=== PATIENT | male | born 1955 | race Caucasian/White ===

== ENCOUNTER 2023-10-28 16:41 | Emergency (ER) | payer MEDICARE, MEDICAID ==
[~2023-10-28] VITALS: Ht 167.6 cm; Wt 49.9 kg
[2023-10-28 16:54] VITALS: BP_SYST 132; PULSE 98; RESP 20; TEMP 97.6; O2SAT 98
[2023-10-28] MEDS: IPRATROPIUM/ALBUTEROL SULFATE 3 ML AMPUL.NEB (DUONEB) INH ONE (17:00)
[2023-10-28 17:30] LABS: BASOPHILS % (AUTO) 0.5 % (0.0-2.0); EOSINOPHILS # (AUTO) 0.1 K/uL (0.0-0.4); EOSINOPHILS % (AUTO) 1.2 % (0.0-4.0); HEMOGLOBIN 14.2 g/dL (14.0-18.0); LYMPHOCYTES # (AUTO) 1.6 K/uL (1.0-5.5); MEAN CORPUSCULAR HEMOGLOBIN 30 pg (27-31); MEAN CORPUSCULAR HGB CONC 33 % (32-36); MEAN CORPUSCULAR VOLUME 92 fL (79.0-98.0); MONOCYTES # (AUTO) 0.9 K/uL (0.0-1.0); MONOCYTES % (AUTO) 13.7 % (1.7-9.3); NEUTROPHILS # (AUTO) 4.2 K/uL (1.8-7.7); NEUTROPHILS % (AUTO) 61.6 % (40.0-70.0); PLATELET COUNT (AUTO) 312 K/uL (130-430); RED CELL DISTRIBUTION WIDTH 14.5 % (9.0-15.0); WHITE BLOOD COUNT (AUTO) 6.9 K/uL (4.8-10.8)
[2023-10-28 17:40] LABS: COVID19 ANTIGEN SOFIA FIA NEGATIVE (NEGATIVE)
[2023-10-28 17:41] LABS: INFLUENZA TYPE A Negative (NEGATIVE); INFLUENZA TYPE B NEGATIVE (NEGATIVE)
[2023-10-28 17:54] LABS: INR 1.2 (0.80-1.20); PROTHROMBIN TIME 12.3 SECS (9.5-12.5)
[2023-10-28 17:59] LABS: ALANINE AMINOTRANSFERASE 31 U/L (12-78); ALBUMIN 3.1 g/dL (3.4-4.8); ANION GAP 8 (5-15); ASPARTATE AMINOTRANSFERASE 20 U/L (10-37); CALCIUM 8.9 mg/dL (8.4-11.0); CARBON DIOXIDE 28 mmol/L (23-29); CHLORIDE 110 mmol/L (98-107); CREATININE 0.45 mg/dL (0.55-1.30); GFR AFRICAN AMERICAN 241 mL/min (>90); GFR NON AFRICAN-AMERICAN 199 mL/min (>90); GLUCOSE 95 mg/dL (74-106); POTASSIUM 3.7 mmol/L (3.5-5.1); SODIUM SERUM 146 mmol/L (136-145); TOTAL BILIRUBIN 0.6 mg/dL (0.0-1.0); TOTAL PROTEIN, SERUM 7.3 g/dL (6.4-8.3); UREA NITROGEN, BLOOD 18 mg/dL (8-21)
[2023-10-28 18:10] LABS: BILIRUBIN,DIRECT 0.2 mg/dL (0.0-0.3); CREATINE KINASE, TOTAL 66 U/L (39-308)
[2023-10-28] MEDS ORDERED: TIOT18CA8 INH (18:46)
[2023-10-28] MEDS ORDERED: ZOLP10TA2 (18:46)
[2023-10-28] MEDS ORDERED: ATOR40TA68 PO (18:46)
[2023-10-28] MEDS ORDERED: TIOT18CA3 INH (18:46)
[2023-10-28] MEDS ORDERED: ALBU2.5V7 HHN (18:46)
[2023-10-28] MEDS ORDERED: CLON1TAB12 (18:46)
[2023-10-28] MEDS ORDERED: FINA5TAB11 PO (18:46)
[2023-10-28] MEDS ORDERED: QUET25TA36 PO (18:46)
[2023-10-28] MEDS ORDERED: HYDR-3925 PO (18:46)
[2023-10-28] MEDS ORDERED: OMEP20CA15 PO (18:46)
[2023-10-28 18:52] VITALS: TEMP 97.6
[2023-10-28] MEDS ORDERED: LEVO-62 PO (19:01)
[2023-10-28] MEDS: HYDROcodone/ACETAMIN 7.5-325 MG TAB PO ONE (19:57)
[2023-10-28] MEDS: levoFLOXacin 500 MG TABLET PO ONE (21:01)
[2023-10-28 21:35] VITALS: BP_SYST 112; PULSE 74; RESP 20; O2SAT 94
== END 2023-10-28 21:34 | disposition home or self-care (01) ==
LOC: SED 16:41
DX: J18.9 Pneumonia, unspecified organism (principal); Z79.899 Other long term (current) drug therapy; Z20.822 Contact with and (suspected) exposure to COVID-19
CPT/HCPCS: 99285; 96365; 71045; 87426; 80076; 80048; 82550; 83880; 85025; 85610; 85730; 84484; 36415; 93005; 94640; 83605; 87804 ×2; 82397; J1956; 94760

== ENCOUNTER 2023-11-16 09:06 | Inpatient (IN) | payer MEDICARE, MEDICAID ==
[~2023-11-16] VITALS: Ht 172.7 cm; Wt 61.2 kg
[2023-11-16 09:06] VITALS: BP_SYST 84; PULSE 82; RESP 20; TEMP 99.3; O2SAT 96
[~2023-11-16 09:06] MED LIST: ALBU2.5V7 HHN; ATOR40TA68 GT; CLON1TAB12 GT; FINA5TAB11 GT; HYDR-3925 GT; LEVO-62 PO; OMEP20CA15 GT; QUET25TA36 GT; TIOT18CA3 INH; TIOT18CA8 INH; ZOLP10TA2 GT
[2023-11-16] MEDS: IPRATROPIUM/ALBUTEROL SULFATE 3 ML AMPUL.NEB (DUONEB) INH ONE ×2 (09:27→09:55)
[2023-11-16 10:00] LABS: ABG O2 SAT% ESTIMATE 94.6 % (94.0-100.0); BLOOD GAS BASE EXCESS -1.1 mmol/L (-3.0-3.0); BLOOD GAS HCO3 23.2 mmol/L (21.0-27.0); BLOOD GAS PCO2 37.6 mmHg (32.0-45.0); BLOOD GAS PH 7.408 (7.350-7.450); BLOOD GAS PO2 71.6 mmHg (75.0-100.0)
[2023-11-16 10:02] LABS: ALLEN'S TEST POSITIVE (P)
[2023-11-16 10:06] LABS: BASOPHILS % (AUTO) 0.1 % (0.0-2.0); EOSINOPHILS # (AUTO) 0.1 K/uL (0.0-0.4); EOSINOPHILS % (AUTO) 0.6 % (0.0-4.0); HEMATOCRIT 37.5 % (36-54); HEMOGLOBIN 12.3 g/dL (14.0-18.0); LYMPHOCYTES # (AUTO) 1.1 K/uL (1.0-5.5); LYMPHOCYTES % (AUTO) 8.2 % (20.5-51.5); MEAN CORPUSCULAR HEMOGLOBIN 30 pg (27-31); MEAN CORPUSCULAR HGB CONC 33 % (32-36); MEAN CORPUSCULAR VOLUME 91 fL (79.0-98.0); MONOCYTES # (AUTO) 1.5 K/uL (0.0-1.0); NEUTROPHILS # (AUTO) 10.6 K/uL (1.8-7.7); NEUTROPHILS % (AUTO) 80.1 % (40.0-70.0); PLATELET COUNT (AUTO) 225 K/uL (130-430); RED BLOOD CELL COUNT(AUTO) 4.14 MIL/uL (4.2-6.2); RED CELL DISTRIBUTION WIDTH 14.8 % (9.0-15.0); WHITE BLOOD COUNT (AUTO) 13.2 K/uL (4.8-10.8)
[2023-11-16] MEDS: PIPERACILLIN/TAZO 3.375 GM in D5W 50 ML IV ONE (10:09)
[2023-11-16] MEDS ORDERED: PIPERACILLIN/TAZOBACTAM 3.375 GM/VIAL (ZOSYN) IV ONE (10:10)
[2023-11-16 10:11] LABS: ANION GAP 3 (5-15); CALCIUM 8.4 mg/dL (8.4-11.0); CARBON DIOXIDE 30 mmol/L (23-29); CHLORIDE 106 mmol/L (98-107); GFR AFRICAN AMERICAN 144 mL/min (>90); GLUCOSE 86 mg/dL (74-106); POTASSIUM 4.3 mmol/L (3.5-5.1); SODIUM SERUM 139 mmol/L (136-145); UREA NITROGEN, BLOOD 22 mg/dL (8-21)
[2023-11-16 10:12] LABS: GFR NON AFRICAN-AMERICAN 119 mL/min (>90)
[2023-11-16] MEDS: NACL 0.9% 1,000 ML IV ONE ×2 (10:28→16:05)
[2023-11-16] MEDS ORDERED: SENN8.6T19 GT (11:36)
[2023-11-16 12:36] LABS: INFLUENZA TYPE A Negative (NEGATIVE); INFLUENZA TYPE B NEGATIVE (NEGATIVE)
[2023-11-16] MEDS: NACL 0.9% 1,000 ML IV SCH (14:24)
[2023-11-16 17:18] VITALS: BP_SYST 93; PULSE 81; RESP 16; TEMP 97.6; O2SAT 94
[2023-11-16 17:31] VITALS: BP_SYST 93; PULSE 81; RESP 16; TEMP 97.6; O2SAT 94
[2023-11-16 20:22] VITALS: BP_SYST 146; PULSE 80; RESP 16; TEMP 98.6; O2SAT 93
[2023-11-16] MEDS ORDERED: ZOLPIDEM TARTRATE 5 MG TABLET PO PRN (20:45)
[2023-11-16] MEDS ORDERED: HYDROcodone/ACETAMIN 10-325 MG TAB PO PRN (20:45)
[2023-11-16] MEDS ORDERED: NALOXONE HCL 0.4 MG/ML AMP (NARCAN) IVP PRN (20:45)
[2023-11-16] MEDS ORDERED: ALBUTEROL MDI INHALATION 8 GM INH INH SCH (21:00)
[2023-11-16 22:04] VITALS: BP_SYST 146; PULSE 80; O2SAT 93
[2023-11-16] MEDS: QUEtiapine FUMARATE 25 MG TABLET PO SCH (22:14)
[2023-11-16] MEDS: clonazePAM 0.5 MG TABLET PO SCH (22:15)
[2023-11-17] VITALS (10 sets, daily range): BP systolic 82–99; PULSE 64–71; RESP 15–16; TEMP 96.5–98.4; O2SAT 93–97
[2023-11-17 06:40] LABS: BASOPHILS % (AUTO) 0.1 % (0.0-2.0); EOSINOPHILS # (AUTO) 0.2 K/uL (0.0-0.4); EOSINOPHILS % (AUTO) 1.9 % (0.0-4.0); HEMOGLOBIN 11.4 g/dL (14.0-18.0); LYMPHOCYTES # (AUTO) 1.4 K/uL (1.0-5.5); LYMPHOCYTES % (AUTO) 13.1 % (20.5-51.5); MEAN CORPUSCULAR HEMOGLOBIN 30 pg (27-31); MEAN CORPUSCULAR HGB CONC 34 % (32-36); MEAN CORPUSCULAR VOLUME 90 fL (79.0-98.0); MONOCYTES # (AUTO) 1.3 K/uL (0.0-1.0); MONOCYTES % (AUTO) 12.9 % (1.7-9.3); NEUTROPHILS # (AUTO) 7.5 K/uL (1.8-7.7); PLATELET COUNT (AUTO) 206 K/uL (130-430); RED BLOOD CELL COUNT(AUTO) 3.77 MIL/uL (4.2-6.2); RED CELL DISTRIBUTION WIDTH 14.2 % (9.0-15.0); WHITE BLOOD COUNT (AUTO) 10.4 K/uL (4.8-10.8)
[2023-11-17 06:55] LABS: ALBUMIN 2.2 g/dL (3.4-4.8); CALCIUM 8.5 mg/dL (8.4-11.0); CREATININE 0.49 mg/dL (0.55-1.30); TOTAL BILIRUBIN 0.4 mg/dL (0.0-1.0); TOTAL PROTEIN, SERUM 5.5 g/dL (6.4-8.3)
[2023-11-17] MEDS: ALBUTEROL SULFATE 0.083% 2.5 MG/3 ML VIAL.NEB INH SCH (11:28)
[2023-11-17 14:43] LABS: BILIRUBIN,URINE NEGATIVE (NEGATIVE); BLOOD, URINE NEGATIVE (NEGATIVE); CLARITY/URINE CLEAR (CLEAR); COLOR,URINE YELLOW (YELLOW); GLUCOSE,URINE NEGATIVE (NEGATIVE); KETONES,URINE NEGATIVE (NEGATIVE); LEUKOCYTE ESTERASE ,URINE NEGATIVE (NEGATIVE); NITRITE, URINE NEGATIVE (NEGATIVE); PROTEIN URINE NEGATIVE (NEGATIVE); UROBILINOGEN,URINE 0.2 (0.2-1.0)
[2023-11-17] MEDS ORDERED: PRO40 GT (15:31)
[2023-11-17] MEDS ORDERED: NALOXONE HCL 0.4 MG/ML AMP (NARCAN) IVP PRN (15:45)
[2023-11-17] MEDS ORDERED: QUEtiapine FUMARATE 25 MG TABLET PO PRN (15:45)
[2023-11-17] MEDS ORDERED: QUEtiapine FUMARATE 25 MG TABLET GT PRN (15:53)
[2023-11-17] MEDS: HYDROcodone/ACETAMIN 10-325 MG TAB GT SCH (17:56)
[2023-11-17] MEDS: ZOLPIDEM TARTRATE 5 MG TABLET GT SCH (22:04)
[2023-11-18] VITALS (10 sets, daily range): BP systolic 95–138; PULSE 63–83; RESP 16–18; TEMP 97.1–98.7; O2SAT 93–97
[2023-11-18 06:06] LABS: BASOPHILS % (AUTO) 0.2 % (0.0-2.0); EOSINOPHILS # (AUTO) 0.3 K/uL (0.0-0.4); EOSINOPHILS % (AUTO) 4.4 % (0.0-4.0); HEMOGLOBIN 11.5 g/dL (14.0-18.0); LYMPHOCYTES # (AUTO) 1.3 K/uL (1.0-5.5); LYMPHOCYTES % (AUTO) 18.5 % (20.5-51.5); MEAN CORPUSCULAR HEMOGLOBIN 30 pg (27-31); MEAN CORPUSCULAR HGB CONC 34 % (32-36); MEAN CORPUSCULAR VOLUME 90 fL (79.0-98.0); MONOCYTES # (AUTO) 0.8 K/uL (0.0-1.0); MONOCYTES % (AUTO) 11.2 % (1.7-9.3); NEUTROPHILS # (AUTO) 4.6 K/uL (1.8-7.7); NEUTROPHILS % (AUTO) 65.7 % (40.0-70.0); PLATELET COUNT (AUTO) 207 K/uL (130-430); RED BLOOD CELL COUNT(AUTO) 3.79 MIL/uL (4.2-6.2); RED CELL DISTRIBUTION WIDTH 14.4 % (9.0-15.0)
[2023-11-18 06:33] LABS: CALCIUM 8.2 mg/dL (8.4-11.0); CREATININE 0.47 mg/dL (0.55-1.30)
[2023-11-18] MEDS: PIPERACILLIN/TAZO 4.5 GM in NS 100 ML IV SCH (06:37)
[2023-11-18] MEDS: LANSOPRAZOLE 30 MG CAPSULE.DR GT SCH (07:00)
[2023-11-18] MEDS ORDERED: PANTOPRAZOLE SODIUM 40 MG TAB PO SCH (09:00)
[2023-11-18] MEDS: ATORVASTATIN 20 MG TABLET PO SCH (09:53)
[2023-11-18] MEDS: FINASTERIDE 5 MG TABLET (PROSCAR) PO SCH (09:53)
[2023-11-19] VITALS (11 sets, daily range): BP systolic 92–108; PULSE 62–89; RESP 15–18; TEMP 97–98.2; O2SAT 92–99
[2023-11-19 06:12] LABS: BASOPHILS % (AUTO) 0.2 % (0.0-2.0); EOSINOPHILS # (AUTO) 0.4 K/uL (0.0-0.4); EOSINOPHILS % (AUTO) 7.4 % (0.0-4.0); HEMATOCRIT 34.9 % (36-54); HEMOGLOBIN 11.6 g/dL (14.0-18.0); LYMPHOCYTES # (AUTO) 1.3 K/uL (1.0-5.5); LYMPHOCYTES % (AUTO) 25.9 % (20.5-51.5); MEAN CORPUSCULAR HEMOGLOBIN 30 pg (27-31); MEAN CORPUSCULAR HGB CONC 33 % (32-36); MEAN CORPUSCULAR VOLUME 90 fL (79.0-98.0); MONOCYTES # (AUTO) 0.6 K/uL (0.0-1.0); MONOCYTES % (AUTO) 13.2 % (1.7-9.3); NEUTROPHILS # (AUTO) 2.6 K/uL (1.8-7.7); NEUTROPHILS % (AUTO) 53.3 % (40.0-70.0); PLATELET COUNT (AUTO) 233 K/uL (130-430); RED BLOOD CELL COUNT(AUTO) 3.88 MIL/uL (4.2-6.2); RED CELL DISTRIBUTION WIDTH 14.2 % (9.0-15.0); WHITE BLOOD COUNT (AUTO) 4.9 K/uL (4.8-10.8)
[2023-11-19 06:53] LABS: CALCIUM 8.3 mg/dL (8.4-11.0); CREATININE 0.56 mg/dL (0.55-1.30); POTASSIUM 4.1 mmol/L (3.5-5.1)
[2023-11-19] MEDS: IPRATROPIUM/ALBUTEROL SULFATE 3 ML AMPUL.NEB (DUONEB) INH PRN (09:17)
[2023-11-19] MEDS: ACETYLCYSTEINE 10% 4 ML VIAL (RT) INH ONE (11:50)
[2023-11-20] VITALS (11 sets, daily range): BP systolic 93–134; PULSE 61–85; RESP 16–20; TEMP 97.4–99.2; O2SAT 91–97
[2023-11-20 05:20] LABS: BASOPHILS % (AUTO) 0.5 % (0.0-2.0); EOSINOPHILS # (AUTO) 0.4 K/uL (0.0-0.4); HEMATOCRIT 36.4 % (36-54); MEAN CORPUSCULAR HEMOGLOBIN 30 pg (27-31); MEAN CORPUSCULAR HGB CONC 33 % (32-36); MEAN CORPUSCULAR VOLUME 91 fL (79.0-98.0); MONOCYTES # (AUTO) 0.6 K/uL (0.0-1.0); MONOCYTES % (AUTO) 12.3 % (1.7-9.3); NEUTROPHILS % (AUTO) 59.2 % (40.0-70.0); PLATELET COUNT (AUTO) 244 K/uL (130-430); RED BLOOD CELL COUNT(AUTO) 4.02 MIL/uL (4.2-6.2); RED CELL DISTRIBUTION WIDTH 14.4 % (9.0-15.0); WHITE BLOOD COUNT (AUTO) 5.1 K/uL (4.8-10.8)
[2023-11-20 05:32] LABS: CALCIUM 8.7 mg/dL (8.4-11.0); CREATININE 0.52 mg/dL (0.55-1.30); POTASSIUM 4.1 mmol/L (3.5-5.1)
[2023-11-20] MEDS ORDERED: AUG875 GT (13:11)
[2023-11-21] VITALS (10 sets, daily range): BP systolic 95–113; PULSE 61–81; RESP 16–18; TEMP 96.1–97.4; O2SAT 92–96
[2023-11-21] MEDS ORDERED: AUG875 PO (08:59)
== END 2023-11-21 16:10 | disposition home health service (06) | DRG 871 ==
LOC: SED 09:06 → STU 14:04 → SMU 11-19 12:08
PROVIDERS: ADMIT Internal Medicine; ATTEND Internal Medicine
PROC: 4A10X4Z Monitoring of Central Nervous Electrical Activity, External Approach (ICD-10-PCS; principal; 2023-11-20)
DX: A41.9 Sepsis, unspecified organism (principal); G93.41 Metabolic encephalopathy; J18.9 Pneumonia, unspecified organism; J96.90 Respiratory failure, unspecified, unspecified whether with hypoxia or hypercapnia; K21.9 Gastro-esophageal reflux disease without esophagitis; Z20.822 Contact with and (suspected) exposure to COVID-19; E78.5 Hyperlipidemia, unspecified; R13.10 Dysphagia, unspecified; Z86.73 Personal history of transient ischemic attack (TIA), and cerebral infarction without residual deficits; Z88.8 Allergy status to other drugs, medicaments and biological substances
CPT/HCPCS: 36415; 36600; 70450-TC; 71045; 80048; 80053; 81001; 81003; 82803; 83605; 83880; 84484; 85025; 87040; 87086; 93005; 93971; 94640; 94760; 95816; 97110-GP; 97112-GP; 97530-GP; 99291; G0378; J1956; J2543; J7608

== ENCOUNTER 2024-01-13 20:59 | Emergency (ER) | payer MEDICARE, MEDICAID ==
[~2024-01-13] VITALS: Ht 175.3 cm; Wt 59.0 kg
[~2024-01-13 20:59] MED LIST changes: +AUG875 PO; -LEVO-62 PO; -OMEP20CA15 GT; +PRO40 GT; +SENN8.6T19 GT; -TIOT18CA8 INH
[2024-01-13 21:11] VITALS: BP_SYST 119; PULSE 67; RESP 18; TEMP 98.5; O2SAT 97
[2024-01-13 22:12] LABS: BASOPHILS # (AUTO) 0.1 K/uL (0.0-0.2); BASOPHILS % (AUTO) 0.7 % (0.0-2.0); EOSINOPHILS # (AUTO) 0.1 K/uL (0.0-0.4); EOSINOPHILS % (AUTO) 1.2 % (0.0-4.0); HEMATOCRIT 38.9 % (36-54); HEMOGLOBIN 12.9 g/dL (14.0-18.0); LYMPHOCYTES # (AUTO) 1.8 K/uL (1.0-5.5); MEAN CORPUSCULAR HEMOGLOBIN 30 pg (27-31); MEAN CORPUSCULAR HGB CONC 33 % (32-36); MEAN CORPUSCULAR VOLUME 90 fL (79.0-98.0); MONOCYTES # (AUTO) 0.8 K/uL (0.0-1.0); NEUTROPHILS # (AUTO) 4.9 K/uL (1.8-7.7); NEUTROPHILS % (AUTO) 64.1 % (40.0-70.0); PLATELET COUNT (AUTO) 184 K/uL (130-430); RED BLOOD CELL COUNT(AUTO) 4.31 MIL/uL (4.2-6.2); RED CELL DISTRIBUTION WIDTH 14.2 % (9.0-15.0); WHITE BLOOD COUNT (AUTO) 7.6 K/uL (4.8-10.8)
[2024-01-13 22:19] LABS: INR 1.2 (0.80-1.20); PROTHROMBIN TIME 12.5 SECS (9.5-12.5)
[2024-01-13 22:38] LABS: COVID19 ANTIGEN SOFIA FIA NEGATIVE (NEGATIVE)
[2024-01-13 22:59] LABS: ALANINE AMINOTRANSFERASE 26 U/L (12-78); ALBUMIN 2.8 g/dL (3.4-4.8); ANION GAP 7 (5-15); ASPARTATE AMINOTRANSFERASE 17 U/L (10-37); BILIRUBIN,DIRECT 0.1 mg/dL (0.0-0.3); CARBON DIOXIDE 26 mmol/L (23-29); CHLORIDE 106 mmol/L (98-107); CREATININE 0.49 mg/dL (0.55-1.30); GFR AFRICAN AMERICAN 218 mL/min (>90); GLUCOSE 88 mg/dL (74-106); POTASSIUM 4.1 mmol/L (3.5-5.1); SODIUM SERUM 139 mmol/L (136-145); TOTAL BILIRUBIN 0.5 mg/dL (0.0-1.0); TOTAL PROTEIN, SERUM 6.8 g/dL (6.4-8.3); UREA NITROGEN, BLOOD 24 mg/dL (8-21)
[2024-01-13 23:03] LABS: GFR NON AFRICAN-AMERICAN 180 mL/min (>90)
[2024-01-13 23:24] LABS: INFLUENZA TYPE A Negative (NEGATIVE); INFLUENZA TYPE B NEGATIVE (NEGATIVE)
[2024-01-13] MEDS ORDERED: ZIT250 GT (23:35)
[2024-01-13] MEDS ORDERED: IBUP-1969 GT (23:35)
[2024-01-13] MEDS ORDERED: PRED20TA GT (23:35)
[2024-01-13 23:55] VITALS: BP_SYST 101; PULSE 60; RESP 16; TEMP 98; O2SAT 96
== END 2024-01-13 23:55 | disposition home or self-care (01) ==
LOC: SED 20:59
DX: J18.9 Pneumonia, unspecified organism (principal); R50.9 Fever, unspecified; R06.02 Shortness of breath; Z20.822 Contact with and (suspected) exposure to COVID-19; I10 Essential (primary) hypertension; Z98.890 Other specified postprocedural states; Z88.5 Allergy status to narcotic agent; Z79.899 Other long term (current) drug therapy; Z79.2 Long term (current) use of antibiotics
CPT/HCPCS: 36415; 71045; 80048; 80076; 83605; 83880; 84484; 85025; 85610; 85730; 93005; 99285

== ENCOUNTER 2024-03-21 18:59 | Inpatient (IN) | payer MEDICARE, MEDICAID ==
[~2024-03-21] VITALS: Ht 167.6 cm; Wt 57.2 kg
[~2024-03-21 18:59] MED LIST changes: +IBUP-1969 GT; +PRED20TA GT; +ZIT250 GT
[2024-03-21 19:00] VITALS: BP_SYST 106; PULSE 69; RESP 24; TEMP 98; O2SAT 97
[2024-03-21] MEDS ORDERED: PIPERACILLIN/TAZOBACTAM 3.375 GM/VIAL (ZOSYN) IV ONE (19:49)
[2024-03-21 19:59] LABS: BASOPHILS % (AUTO) 0.2 % (0.0-2.0); EOSINOPHILS # (AUTO) 0.1 K/uL (0.0-0.4); EOSINOPHILS % (AUTO) 0.7 % (0.0-4.0); HEMATOCRIT 45.2 % (36-54); HEMOGLOBIN 15.1 g/dL (14.0-18.0); LYMPHOCYTES # (AUTO) 1.6 K/uL (1.0-5.5); LYMPHOCYTES % (AUTO) 15.9 % (20.5-51.5); MEAN CORPUSCULAR HEMOGLOBIN 30 pg (27-31); MEAN CORPUSCULAR HGB CONC 34 % (32-36); MEAN CORPUSCULAR VOLUME 90 fL (79.0-98.0); MONOCYTES % (AUTO) 9.5 % (1.7-9.3); NEUTROPHILS # (AUTO) 7.6 K/uL (1.8-7.7); NEUTROPHILS % (AUTO) 73.7 % (40.0-70.0); PLATELET COUNT (AUTO) 220 K/uL (130-430); RED BLOOD CELL COUNT(AUTO) 5.05 MIL/uL (4.2-6.2); RED CELL DISTRIBUTION WIDTH 14.3 % (9.0-15.0); WHITE BLOOD COUNT (AUTO) 10.3 K/uL (4.8-10.8)
[2024-03-21] MEDS: PIPERACILLIN/TAZO 3.375 GM in D5W 50 ML IV ONE (20:07)
[2024-03-21 20:08] LABS: ALANINE AMINOTRANSFERASE 49 U/L (12-78); ALBUMIN 3.2 g/dL (3.4-4.8); ANION GAP 4 (5-15); ASPARTATE AMINOTRANSFERASE 25 U/L (10-37); CALCIUM 9.6 mg/dL (8.4-11.0); CARBON DIOXIDE 32 mmol/L (23-29); CHLORIDE 109 mmol/L (98-107); GFR AFRICAN AMERICAN 172 mL/min (>90); GFR NON AFRICAN-AMERICAN 142 mL/min (>90); GLUCOSE 96 mg/dL (74-106); SODIUM SERUM 145 mmol/L (136-145); TOTAL BILIRUBIN 0.7 mg/dL (0.0-1.0); TOTAL PROTEIN, SERUM 7.4 g/dL (6.4-8.3); UREA NITROGEN, BLOOD 25 mg/dL (8-21)
[2024-03-21 20:11] LABS: BILIRUBIN,DIRECT 0.2 mg/dL (0.0-0.3)
[2024-03-21 20:14] LABS: INR 1.2 (0.80-1.20)
[2024-03-21] MEDS: HYDROcodone/ACETAMIN 10-325 MG TAB PO ONE (20:26)
[2024-03-21 20:36] LABS: COVID19 ANTIGEN SOFIA FIA NEGATIVE (NEGATIVE)
[2024-03-21 20:37] LABS: INFLUENZA TYPE A Negative (NEGATIVE); INFLUENZA TYPE B NEGATIVE (NEGATIVE)
[2024-03-21 20:50] LABS: BILIRUBIN,URINE NEGATIVE (NEGATIVE); BLOOD, URINE 3+ (NEGATIVE); CLARITY/URINE CLOUDY (CLEAR); COLOR,URINE YELLOW (YELLOW); GLUCOSE,URINE NEGATIVE (NEGATIVE); KETONES,URINE NEGATIVE (NEGATIVE); LEUKOCYTE ESTERASE ,URINE NEGATIVE (NEGATIVE); NITRITE, URINE NEGATIVE (NEGATIVE); PROTEIN URINE NEGATIVE (NEGATIVE)
[2024-03-21 21:09] LABS: BACTERIA,URINE FEW /HPF (None Seen); WBC,URINE 0-3 /HPF (0-3)
[2024-03-21] MEDS: IPRATROPIUM/ALBUTEROL SULFATE 3 ML AMPUL.NEB (DUONEB) INH ONE (21:44)
[2024-03-21] MEDS ORDERED: ALBUTEROL SULFATE 0.083% 2.5 MG/3 ML VIAL.NEB INH PRN (22:30)
[2024-03-21] MEDS ORDERED: ONDANSETRON HCL 4 MG/2 ML VIAL IVP PRN (22:30)
[2024-03-21] MEDS ORDERED: ACETAMINOPHEN 325 MG TABLET PO PRN (22:30)
[2024-03-21] MEDS ORDERED: IPRATROPIUM BROM 0.5 MG/2.5 ML VIAL.NEB (ATROVENT) INH PRN (22:30)
[2024-03-21] MEDS: NACL 0.9% 1,000 ML IV ONE (22:37)
[2024-03-21] MEDS: MORPHINE 2 MG/ML INJ. SYRINGE IVP PRN (23:20)
[2024-03-21] MEDS: cefTRIAXone 1 GM IVPB PREMIX 50 ML IV SCH (23:21)
[2024-03-22] VITALS (12 sets, daily range): BP systolic 93–165; PULSE 56–72; RESP 15–16; TEMP 96.8–98.5; O2SAT 95–100
[2024-03-22] MEDS: NACL 0.9% 1,000 ML IV SCH (00:27)
[2024-03-22] MEDS: AZITHROMYCIN 500 MG/VIAL (ZITHROMAX) IV ONE (00:27)
[2024-03-22] MEDS: AZITHROMYCIN 500 MG in NS 250 ML IV SCH ×2 (00:27→21:29)
[2024-03-22 07:17] LABS: BASOPHILS % (AUTO) 0.6 % (0.0-2.0); EOSINOPHILS # (AUTO) 0.1 K/uL (0.0-0.4); EOSINOPHILS % (AUTO) 2.4 % (0.0-4.0); HEMATOCRIT 42.4 % (36-54); HEMOGLOBIN 13.7 g/dL (14.0-18.0); LYMPHOCYTES # (AUTO) 1.2 K/uL (1.0-5.5); LYMPHOCYTES % (AUTO) 24.4 % (20.5-51.5); MEAN CORPUSCULAR HEMOGLOBIN 30 pg (27-31); MEAN CORPUSCULAR HGB CONC 32 % (32-36); MEAN CORPUSCULAR VOLUME 92 fL (79.0-98.0); MONOCYTES # (AUTO) 0.8 K/uL (0.0-1.0); MONOCYTES % (AUTO) 15.5 % (1.7-9.3); NEUTROPHILS # (AUTO) 2.9 K/uL (1.8-7.7); NEUTROPHILS % (AUTO) 57.1 % (40.0-70.0); PLATELET COUNT (AUTO) 186 K/uL (130-430); RED BLOOD CELL COUNT(AUTO) 4.62 MIL/uL (4.2-6.2); RED CELL DISTRIBUTION WIDTH 13.9 % (9.0-15.0)
[2024-03-22 07:50] LABS: ALBUMIN 2.7 g/dL (3.4-4.8); CALCIUM 8.7 mg/dL (8.4-11.0); CREATININE 0.58 mg/dL (0.55-1.30); TOTAL BILIRUBIN 0.9 mg/dL (0.0-1.0); TOTAL PROTEIN, SERUM 6.4 g/dL (6.4-8.3)
[2024-03-22] MEDS ORDERED: ALBUTEROL SULFATE 0.083% 2.5 MG/3 ML VIAL.NEB INH PRN (09:45)
[2024-03-22] MEDS ORDERED: ZOLPIDEM TARTRATE 5 MG TABLET GT PRN (09:45)
[2024-03-22] MEDS ORDERED: HYDROcodone/ACETAMIN 10-325 MG TAB GT PRN (09:45)
[2024-03-22] MEDS ORDERED: NALOXONE HCL 0.4 MG/ML AMP (NARCAN) IVP PRN (09:45)
[2024-03-22] MEDS: ENOXAPARIN SODIUM 40 MG/0.4 ML SYRINGE SUBCUT ONE (10:43)
[2024-03-22] MEDS: FINASTERIDE 5 MG TABLET (PROSCAR) GT ONE (10:44)
[2024-03-22] MEDS: ATORVASTATIN 20 MG TABLET GT ONE (10:44)
[2024-03-22] MEDS: PANTOPRAZOLE SODIUM 40 MG TAB PO ONE (10:44)
[2024-03-22] MEDS: HYDROcodone/ACETAMIN 5-325 MG TAB (NORCO/ VICODIN) PO PRN (10:45)
[2024-03-22] MEDS: IPRATROPIUM BROM 0.5 MG/2.5 ML VIAL.NEB (ATROVENT) INH SCH (12:00)
[2024-03-22] MEDS: QUEtiapine FUMARATE 25 MG TABLET GT SCH (15:00)
[2024-03-22] MEDS: ZOLPIDEM TARTRATE 5 MG TABLET GT SCH (20:52)
[2024-03-22] MEDS: CEFTRIAXONE SOD 1 GM/ D5W 50 ML IV SCH (20:53)
[2024-03-23] VITALS (8 sets, daily range): BP systolic 101–160; PULSE 61–70; RESP 16–18; TEMP 97.6–98.3; O2SAT 95–98
[2024-03-23 06:19] LABS: BASOPHILS % (AUTO) 0.6 % (0.0-2.0); EOSINOPHILS # (AUTO) 0.2 K/uL (0.0-0.4); EOSINOPHILS % (AUTO) 4.2 % (0.0-4.0); HEMATOCRIT 39.5 % (36-54); HEMOGLOBIN 12.7 g/dL (14.0-18.0); LYMPHOCYTES # (AUTO) 1.2 K/uL (1.0-5.5); LYMPHOCYTES % (AUTO) 23.8 % (20.5-51.5); MEAN CORPUSCULAR HEMOGLOBIN 29 pg (27-31); MEAN CORPUSCULAR HGB CONC 32 % (32-36); MEAN CORPUSCULAR VOLUME 90 fL (79.0-98.0); MONOCYTES # (AUTO) 0.9 K/uL (0.0-1.0); MONOCYTES % (AUTO) 17.1 % (1.7-9.3); NEUTROPHILS # (AUTO) 2.7 K/uL (1.8-7.7); NEUTROPHILS % (AUTO) 54.3 % (40.0-70.0); PLATELET COUNT (AUTO) 175 K/uL (130-430); RED BLOOD CELL COUNT(AUTO) 4.36 MIL/uL (4.2-6.2); RED CELL DISTRIBUTION WIDTH 13.6 % (9.0-15.0)
[2024-03-23 07:02] LABS: ALBUMIN 2.5 g/dL (3.4-4.8); CALCIUM 8.3 mg/dL (8.4-11.0); CREATININE 0.42 mg/dL (0.55-1.30); PHOSPHORUS 2.2 mg/dL (2.7-4.5); POTASSIUM 3.8 mmol/L (3.5-5.1); TOTAL BILIRUBIN 0.6 mg/dL (0.0-1.0); TOTAL PROTEIN, SERUM 5.7 g/dL (6.4-8.3)
[2024-03-23] MEDS ORDERED: ENOXAPARIN SODIUM 40 MG/0.4 ML SYRINGE SUBCUT SCH (09:00)
[2024-03-23] MEDS: ENOXAPARIN SODIUM 40 MG/0.4 ML SYRINGE SUBCUT SCH (09:41)
[2024-03-23] MEDS: ATORVASTATIN 20 MG TABLET GT SCH (09:43)
[2024-03-23] MEDS: FINASTERIDE 5 MG TABLET (PROSCAR) GT SCH (09:44)
[2024-03-23] MEDS: PANTOPRAZOLE SODIUM 40 MG TAB PO SCH (09:44)
[2024-03-23] MEDS ORDERED: IPRATROPIUM BROM 0.5 MG/2.5 ML VIAL.NEB (ATROVENT) INH SCH (11:20)
[2024-03-23] MEDS ORDERED: ALBUTEROL SULFATE 0.083% 2.5 MG/3 ML VIAL.NEB INH PRN (11:20)
[2024-03-23] MEDS: IPRATROPIUM/ALBUTEROL SULFATE 3 ML AMPUL.NEB (DUONEB) INH SCH (13:24)
== END 2024-03-23 18:45 | disposition home or self-care (01) | DRG 177 ==
LOC: SED 18:59 → SMU 22:27
PROVIDERS: ADMIT Student in an Organized Health Care Education/Training Program; ATTEND Student in an Organized Health Care Education/Training Program
DX: J69.0 Pneumonitis due to inhalation of food and vomit (principal); J96.01 Acute respiratory failure with hypoxia; J44.0 Chronic obstructive pulmonary disease with (acute) lower respiratory infection; Z20.822 Contact with and (suspected) exposure to COVID-19; N40.0 Benign prostatic hyperplasia without lower urinary tract symptoms; Z86.73 Personal history of transient ischemic attack (TIA), and cerebral infarction without residual deficits; Z79.899 Other long term (current) drug therapy
CPT/HCPCS: 36415; 71045; 80048; 80053; 80076; 81000; 81001; 81015; 83605; 83735; 84100; 84484; 85025; 85610; 85730; 87040; 87086; 93005; 94070; 94640; 94760; 96365; 96367; 96375; 99285; J0456; J0696; J1650; J2270; J2543; J7050; J7060

== ENCOUNTER 2024-06-07 11:16 | Emergency (ER) | payer MEDICARE, MEDICAID ==
[~2024-06-07] VITALS: Ht 172.7 cm; Wt 52.2 kg
[~2024-06-07 11:16] MED LIST changes: -PRED20TA GT; -ZIT250 GT
[2024-06-07 11:46] VITALS: BP_SYST 119; PULSE 99; RESP 18; TEMP 97.8; O2SAT 96
[2024-06-07 13:07] LABS: BASOPHILS % (AUTO) 0.1 % (0.0-2.0); EOSINOPHILS % (AUTO) 0.1 % (0.0-4.0); HEMATOCRIT 48.2 % (36-54); HEMOGLOBIN 15.9 g/dL (14.0-18.0); LYMPHOCYTES # (AUTO) 0.5 K/uL (1.0-5.5); MEAN CORPUSCULAR HEMOGLOBIN 30 pg (27-31); MEAN CORPUSCULAR HGB CONC 33 % (32-36); MEAN CORPUSCULAR VOLUME 91 fL (79.0-98.0); MONOCYTES # (AUTO) 0.4 K/uL (0.0-1.0); MONOCYTES % (AUTO) 3.9 % (1.7-9.3); NEUTROPHILS # (AUTO) 8.8 K/uL (1.8-7.7); NEUTROPHILS % (AUTO) 90.9 % (40.0-70.0); PLATELET COUNT (AUTO) 187 K/uL (130-430); RED BLOOD CELL COUNT(AUTO) 5.29 MIL/uL (4.2-6.2); RED CELL DISTRIBUTION WIDTH 14.1 % (9.0-15.0); WHITE BLOOD COUNT (AUTO) 9.7 K/uL (4.8-10.8)
[2024-06-07 13:16] LABS: INR 1.1 (0.80-1.20); PROTHROMBIN TIME 11.7 SECS (9.5-12.5)
[2024-06-07 13:18] LABS: ALANINE AMINOTRANSFERASE 19 U/L (12-78); ALBUMIN 3.4 g/dL (3.4-4.8); ANION GAP 5 (5-15); ASPARTATE AMINOTRANSFERASE 12 U/L (10-37); CALCIUM 9.4 mg/dL (8.4-11.0); CARBON DIOXIDE 30 mmol/L (23-29); CHLORIDE 106 mmol/L (98-107); CREATININE 0.57 mg/dL (0.55-1.30); GFR AFRICAN AMERICAN 183 mL/min (>90); GFR NON AFRICAN-AMERICAN 151 mL/min (>90); GLUCOSE 95 mg/dL (74-106); POTASSIUM 4.1 mmol/L (3.5-5.1); SODIUM SERUM 141 mmol/L (136-145); TOTAL BILIRUBIN 0.9 mg/dL (0.0-1.0); TOTAL PROTEIN, SERUM 7.4 g/dL (6.4-8.3); UREA NITROGEN, BLOOD 18 mg/dL (8-21)
[2024-06-07 13:29] LABS: BILIRUBIN,DIRECT 0.2 mg/dL (0.0-0.3)
[2024-06-07 13:36] LABS: COVID19 ANTIGEN SOFIA FIA NEGATIVE (NEGATIVE)
[2024-06-07 13:55] LABS: INFLUENZA TYPE A Negative (NEGATIVE); INFLUENZA TYPE B NEGATIVE (NEGATIVE)
[2024-06-07 14:06] LABS: ABG O2 SAT% ESTIMATE 98.1 % (94.0-98.0); BLOOD GAS BASE EXCESS -0.8 mmol/L (-2.0-3.0); BLOOD GAS HCO3 23.5 mmol/L (21.0-28.0); BLOOD GAS PCO2 37.8 mmHg (35.0-48.0); BLOOD GAS PH 7.411 (7.350-7.450); BLOOD GAS PO2 110.1 mmHg (83.0-108.0)
[2024-06-07 14:12] LABS: ALLEN'S TEST POSITIVE (P)
[2024-06-07] MEDS ORDERED: LEVO250T73 PO (14:12)
[2024-06-07] MEDS: IPRATROPIUM/ALBUTEROL SULFATE 3 ML AMPUL.NEB (DUONEB) INH ONE (16:30)
[2024-06-07] MEDS ORDERED: DOXY100C5 PO (16:33)
[2024-06-07 16:48] VITALS: BP_SYST 106; PULSE 87; RESP 18; TEMP 98.5; O2SAT 97
== END 2024-06-07 16:48 | disposition home or self-care (01) ==
LOC: SED 11:16
DX: J98.4 Other disorders of lung (principal); I10 Essential (primary) hypertension; J44.9 Chronic obstructive pulmonary disease, unspecified; Z20.822 Contact with and (suspected) exposure to COVID-19; Z86.73 Personal history of transient ischemic attack (TIA), and cerebral infarction without residual deficits; Z88.1 Allergy status to other antibiotic agents; Z88.5 Allergy status to narcotic agent; Z79.899 Other long term (current) drug therapy; Z79.2 Long term (current) use of antibiotics
CPT/HCPCS: 36415; 36600; 71045; 80048; 80076; 82803; 83605; 83880; 84484; 85025; 85610; 85730; 93005; 94640; 99285